=== PATIENT | male | born 1990 | race Hispanic/Latino ===

== ENCOUNTER 2019-12-26 07:58 | Emergency (ER) | payer SELFPAY ==
[2019-12-26 08:52] VITALS: BP 176/97
== END 2019-12-26 08:50 | disposition home or self-care (01) | DRG 918 ==
LOC: ED 07:58
DX: T63.2X1A Toxic effect of venom of scorpion, accidental (unintentional), initial encounter (principal); E66.9 Obesity, unspecified

== ENCOUNTER 2023-10-12 08:25 | Emergency (ER) | payer SELFPAY ==
[~2023-10-12] VITALS: Ht 180.3 cm; Wt 90.7 kg
[2023-10-12] VITALS (7 sets, daily range): BP systolic 131–149; BP diastolic 70–92
[2023-10-12] MEDS ORDERED: ONDANSETRON HCl 4 MG/2 ML SDV IV ONE ×2 (08:45→10:15)
[2023-10-12] MEDS ORDERED: LIDOCAINE VISCOUS 2% 15 ML UDC PO ONE (08:45)
[2023-10-12] MEDS ORDERED: SODIUM CHLORIDE 0.9% 1,000 ML IV ONE (08:45)
[2023-10-12] MEDS ORDERED: LOPID600 MG PO (08:57)
[2023-10-12] MEDS ORDERED: METFORMIN HCL500 M1 PO (08:58)
[2023-10-12] MEDS ORDERED: ASPIRIN LOW81 M1 PO (08:59)
[2023-10-12 09:14] LABS: BASO% 0.5 % (0-3); EOS% 1.3 % (0-8); HEMATOCRIT 45.9 % (39.0-50.0); HEMOGLOBIN 15.8 g/dl (14.0-18.0); IMMATURE GRANULOCYTES 0.4 % (0.0-5.0); MEAN CELL VOLUME 93.3 fL CALC (80.0-100.0); MEAN CORPUSCULAR HGB 32.1 pG CALC (26.0-32.0); MEAN CORPUSCULAR HGB CONC 34.4 g/dL CAL (32.0-36.0); MONO% 6.9 % (2-13); NEUT# 4.88 thou/uL (1.82-7.42); NEUT% 64.9 % (42-76); RED BLOOD COUNT 4.92 mill/uL (4.70-6.10); RED CELL DISTRI WIDTH 11.8 % (11.5-15.5)
[2023-10-12 09:22] LABS: URINE BILIRUBIN - DIPSTICK Negative (NEGATIVE); URINE BLOOD DIPSTICK Negative (NEGATIVE); URINE GLUCOSE - DIPSTICK Negative (NEGATIVE); URINE KETONE Negative (NEGATIVE); URINE LEUK ESTERASE Negative (NEGATIVE); URINE NITRITE - DIPSTICK Negative (Negative); URINE PROTEIN - DIPSTICK Negative (NEG-TRACE); URINE UROBILINOGEN - DIPSTICK 0.2 E.U./dL (0.2)
[2023-10-12 09:23] LABS: URINE COLOR Yellow
[2023-10-12 09:43] LABS: ALBUMIN 4.8 g/dL (3.2-5.0); BILIRUBIN, TOTAL 0.7 mg/dL (0.2-1.3); POTASSIUM 4.1 mmol/l (3.5-5.1); TOTAL PROTEIN 8.4 g/dL (6.3-8.2)
== END 2023-10-12 10:38 | disposition home or self-care (01) | DRG 392 ==
LOC: ED 08:25
PROVIDERS: Family Medicine
DX: R11.2 Nausea with vomiting, unspecified (principal); I10 Essential (primary) hypertension; E11.9 Type 2 diabetes mellitus without complications; E66.9 Obesity, unspecified; Z79.84 Long term (current) use of oral hypoglycemic drugs; Z20.822 Contact with and (suspected) exposure to COVID-19